=== PATIENT | female | born 1960 | race Two or more races ===

== ENCOUNTER 2021-06-23 14:02 | Emergency (ER) | payer OTHER ==
[~2021-06-23] VITALS: Ht 157.5 cm; Wt 79.4 kg
[2021-06-23 14:12] VITALS: BP 139/74
[2021-06-23] MEDS ORDERED: ACETAMINOPHEN 500 MG TAB PO ONE ×2 (14:29→14:45)
[2021-06-23] MEDS ORDERED: IBUPROFEN 800 MG TAB PO ONE (14:30)
[2021-06-23] MEDS ORDERED: SILVER SULFADIAZINE 1 % TOPICAL CREAM 50GM TOP ONE (14:30)
[2021-06-23] MEDS ORDERED: CEPH500C PO (14:44)
[2021-06-23] MEDS ORDERED: IBUP800T27 PO (14:44)
== END 2021-06-23 14:53 | disposition home or self-care (01) ==
LOC: ER 14:02
DX: T25.221A Burn of second degree of right foot, initial encounter (principal); F17.210 Nicotine dependence, cigarettes, uncomplicated; X12.XXXA Contact with other hot fluids, initial encounter; Y93.89 Activity, other specified; Y92.89 Other specified places as the place of occurrence of the external cause; Y99.8 Other external cause status
CPT/HCPCS: 16020

== ENCOUNTER 2021-06-26 13:24 | Emergency (ER) | payer OTHER ==
[~2021-06-26] VITALS: Ht 160 cm; Wt 79.4 kg
[~2021-06-26 13:24] MED LIST: CEPH500C PO; IBUP800T27 PO
[2021-06-26 16:29] VITALS: BP 129/69
== END 2021-06-26 16:25 | disposition left against medical advice (07) ==
LOC: ER 13:24
DX: T25.221D Burn of second degree of right foot, subsequent encounter (principal); F17.210 Nicotine dependence, cigarettes, uncomplicated; Z90.89 Acquired absence of other organs; Z79.1 Long term (current) use of non-steroidal anti-inflammatories (NSAID); Z79.899 Other long term (current) drug therapy; Z88.5 Allergy status to narcotic agent; X10.0XXD Contact with hot drinks, subsequent encounter